=== PATIENT | female | born 1955 | race Caucasian/White ===

== ENCOUNTER 2017-03-14 11:59 | Emergency (ER) | payer OTHER ==
[2017-03-14 12:21] VITALS: TEMP 98.3; BMI 32.5
[2017-03-14] MEDS ORDERED: OXYCODONE/APAP 5/325MG COMBO TABLET PO ONE (12:48)
--- NOTE | 2017-03-14 12:48 | PDOC ---
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 The patient reports that she woke up with left leg pain and noticed a bruise over the left yarbrough so she came to the ED for further evaluation. The patient reports that is currently taking Plavix and Lovenox s/p CVA two months ago (she denies any missed doses). The patient denies any extremity weakness/numbness/tingling. The patient denies injury or trauma. Allergies: Aspirin, Diphenhydramine HCl, Acetaminophen, Hydrocodone Bitartrate, Sulfa Past Surgical History: Partial Bowel Resection, Orthopedic Surgery. Social History: Non smoker. Denies alcohol or drug use. PCP: Dr. House <Adwoa Cisneros - Last Filed: 03/14/17 15:37> <Ena Francis - Last Filed: 03/15/17 11:35> - General Chief Complaint: Pain Stated Complaint: LT LEG PAIN Time Seen by Provider: 03/14/17 12:38 Past History <Adwoa Cisneros - Last Filed: 03/14/17 15:37> - Past Medical History Cancer: Yes (lt breast,on chemo) CVA: Yes (01/15/17, lt hand weakness) DVT: Yes Diabetes: Yes - Surgical History Abdominal Surgery: Yes (partial bowel resection) - Psycho/Social/Smoking Cessation Hx Suicidal Ideation: No Smoking Status: No Smoking History: Never smoked Number of Cigarettes Smoked Daily: 0 <Ena Francis - Last Filed: 03/15/17 11:35> - Past Medical History Allergies/Adverse Reactions: Allergies Allergy/AdvReac Type Severity Reaction Status Date / Time aspirin Allergy Severe Verified 03/14/17 12:16 diphenhydramine HCl AdvReac Severe Verified 03/14/17 12:16 [From Benadryl] acetaminophen [From Vicodin] AdvReac Intermediate Vomiting Verified 03/14/17 12: 16 hydrocodone bitartrate AdvReac Intermediate Vomiting Verified 03/14/17 12:16 [From Vicodin] Sulfa (Sulfonamide AdvReac Verified 03/14/17 12:16 Antibiotics) Home Medications: Ambulatory Orders Atorvastatin Ca [Lipitor] 10 mg PO HS 03/14/17 Clopidogrel Bisulfate [Plavix -] 75 mg PO BID 03/14/17 Duloxetine HCl 30 mg PO DAILY 03/14/17 Enoxaparin Sodium [Lovenox] 90 mg SQ BID 03/14/17 Glipizide 5 mg PO BID 03/14/17 Metformin HCl 850 mg PO BID 03/14/17 Oxycodone HCl/Acetaminophen [Percocet 5-325 mg Tablet] 1 - 2 tab PO Q6H PRN #20 tab MDD 8 tabs 03/14/17 Review of Systems - Review of Systems Able to Perform ROS?: Yes Comments:: 03/14/17 14:02 GENERAL/CONSTITUTIONAL: No fever or chills. No weakness. HEAD, EYES, EARS, NOSE AND THROAT: No change in vision. No ear pain or discharge. No sore throat. CARDIOVASCULAR: No chest pain or shortness of breath. RESPIRATORY: No cough, wheezing, or hemoptysis. GASTROINTESTINAL: No nausea, vomiting, diarrhea or constipation. GENITOURINARY: No dysuria, frequency, or change in urination. MUSCULOSKELETAL: +Left leg pain. No neck or back pain. SKIN: No rash. NEUROLOGIC: No headache, vertigo, loss of consciousness, or change in strength/ sensation. ENDOCRINE: No increased thirst. No abnormal weight change. HEMATOLOGIC/LYMPHATIC: No anemia, easy bleeding, or history of blood clots. ALLERGIC/IMMUNOLOGIC: No hives or skin allergy. <Adwoa Cisneros - Last Filed: 03/14/17 15:37> *Physical Exam - Vital Signs Last Vital Signs Temp Pulse Resp BP Pulse Ox 98.3 F 94 H 19 141/69 98 03/14/17 12:17 03/14/17 12:17 03/14/17 12:17 03/14/17 12:17 03/14/17 13:11 <Adwoa Cisneros - Last Filed: 03/14/17 15:37> - Vital Signs Last Vital Signs Temp Pulse Resp BP Pulse Ox 98.3 F 94 H 19 141/69 98 03/14/17 12:17 03/14/17 12:17 03/14/17 12:17 03/14/17 12:17 03/14/17 12:17 - Physical Exam Comments: GENERAL: Awake, alert, and fully oriented, in no acute distress HEAD: No signs of trauma EYES: PERRLA, EOMI, sclera anicteric, conjunctiva clear ENT: Auricles normal inspection, hearing grossly normal, nares patent, oropharynx clear without exudates. Moist mucosa NECK: Normal ROM, supple, no lymphadenopathy, JVD, or masses LUNGS: Breath sounds equal, clear to auscultation bilaterally. No wheezes, and no crackles HEART: Regular rate and rhythm, normal S1 and S2, no murmurs, rubs or gallops ABDOMEN: Soft, nontender, normoactive bowel sounds. No guarding, no rebound. No masses EXTREMITIES: Normal range of motion, no edema. No clubbing or cyanosis. No cords, erythema. +Ecchymosis to the L lower leg, lateral portion, approx 3 cm area. +Tenderness to palpation. No calf tenderness, no groin tenderness. NEUROLOGICAL: L facial droop. Normal speech. Sensation intact. Slightly dec strength LUE. +Antalgic gait. SKIN: Warm, Dry, normal turgor, no rashes or lesions noted. <Ena Francis - Last Filed: 03/15/17 11:35> ED Treatment Course - Medications Given in the ED: ED Medications Discontinued Medications Generic Name Dose Route Start Last Admin Trade Name Mariam PRN Reason Stop Dose Admin Oxycodone/Acetaminophen 1 combo 03/14/17 12:48 03/14/17 12:54 Percocet 5/325 - PO 03/14/17 12:49 1 combo ONCE ONE Administration <Adwoa Cisneros - Last Filed: 03/14/17 15:37> Medical Decision Making - Medical Decision Making 03/14/17 14:51 EXAM: RAD/LEG TIB/FIB - LEFT Reviewed By: Dr. Kel Gay IMPRESSION: No sign of a gross pathologic fracture. EXAM: US/DUPLEX VASCUL US -1 LEG Reviewed By: Dr. Kt Zacarias IMPRESSION: No DVT in the left leg. <Adwoa Cisneros - Last Filed: 03/14/17 15:37> - Medical Decision Making XR with no sign of fracture. Doppler negative for DVT. Likely hematoma due to lovenox use. May have been caused by minor trauma. Discussed with patient- return to ED immediately if worsening symptoms, or if any concerns. <Ena Francis - Last Filed: 03/15/17 11:35> *DC/Admit/Observation/Transfer - Attestations Scribe Attestion: 03/14/17 13:21 Documentation prepared by Adwoa Cisneros, acting as medical office administrator for Ena Francis MD. <Adwoa Cisneros - Last Filed: 03/14/17 15:37> - Discharge Dispostion Admit: No <Ena Francis - Last Filed: 03/15/17 11:35> Diagnosis at time of Disposition: Hematoma - Discharge Dispostion Disposition: HOME Condition at time of disposition: Stable - Prescriptions Prescriptions: Oxycodone HCl/Acetaminophen [Percocet 5-325 mg Tablet] 1 - 2 tab PO Q6H PRN #20 tab MDD 8 tabs PRN Reason: Severe Pain - Patient Instructions Printed Discharge Instructions: DI for Hematoma (Bruise)
[2017-03-14] MEDS ORDERED: OXYCODONE/APAP 5/325MG COMBO TABLET ONE (12:51)
[2017-03-14 16:09] VITALS: BP 124/74; PULSE 71
== END 2017-03-14 16:09 | disposition home or self-care (01) ==
LOC: JER 11:59
DX: S80.12XA Contusion of left lower leg, initial encounter (principal); Z79.84 Long term (current) use of oral hypoglycemic drugs; C50.912 Malignant neoplasm of unspecified site of left female breast; I69.854 Hemiplegia and hemiparesis following other cerebrovascular disease affecting left non-dominant side; Z86.718 Personal history of other venous thrombosis and embolism; Z79.01 Long term (current) use of anticoagulants; X58.XXXA Exposure to other specified factors, initial encounter; Y93.89 Activity, other specified
CPT/HCPCS: 73590-TC-LT; 93971-TC; 99281-25